=== PATIENT | female | born 1970 | race Caucasian/White ===

== ENCOUNTER → 2021-07-28 | Outpatient (CLI) | payer BC ==
[~2021-07-28] MED LIST: BENTYL 20MG TAB20 MG PO; CINNAMON500 MG PO; ELDERBERRY PO; IBU600 MG PO; LEVOTHYROXINE150 MCG PO; MAGNESIUM PO; NORCO 5-325 TA1 EACH PO; SYNTHROID125 MCG PO; SYNTHROID150 MCG PO; THRIVE PO; TIZANIDINE HCL2 MG PO; TURMERIC PO; VITAMIN C100 MG PO; VITAMIN D PO; VITAMIN D21250 MCG PO; VITAMIN D250000 UNIT PO; XANAX 0.25 MG0.25 MG PO; ZINC30 MG PO; [UNRECOGNIZED DRUG - OTHER] PO
[2021-07-28 13:57] LABS: HEMOGLOBIN 14.1 gm/dl (12.3-15.3); RED BLOOD COUNT 4.5 M/UL (4.00-5.10); WHITE BLOOD COUNT 9.4 K/UL (4.5-11.0)
== END ==
LOC: OPSV2 12:00
PROVIDERS: Obstetrics & Gynecology
DX: Z01.812 Encounter for preprocedural laboratory examination (principal); D25.9 Leiomyoma of uterus, unspecified
CPT/HCPCS: 36415; 81001; 85025

== ENCOUNTER → 2021-08-02 | Day surgery (SDC) | payer BC ==
[~2021-08-02] MED LIST changes: +DOCUSATE SODIU250 MG PO; +HYDROCODONE-AC1 EACH PO; +IBUPROFEN600 MG PO
== END | disposition home or self-care (01) ==
LOC: OR 06:37
DX: D25.9 Leiomyoma of uterus, unspecified (principal); N80.0 Endometriosis of uterus; N72 Inflammatory disease of cervix uteri; N83.8 Other noninflammatory disorders of ovary, fallopian tube and broad ligament; N92.1 Excessive and frequent menstruation with irregular cycle; N84.0 Polyp of corpus uteri; N60.19 Diffuse cystic mastopathy of unspecified breast; E03.9 Hypothyroidism, unspecified; Z20.822 Contact with and (suspected) exposure to COVID-19
CPT/HCPCS: 71045; 93005; C1769; J0690; J1100; J1170; J1885; J2001; J2250; J2405; J2704; J2710; J3010; J7120